=== PATIENT | female | born 1990 | race Caucasian/White ===

== ENCOUNTER → 2023-05-28 10:13 | Outpatient (BNVA) | payer OTHER, SELFPAY | PROVIDERS: Visit Provider Nurse Practitioner Family | DX: Z00.00 Encounter for general adult medical examination without abnormal findings (principal); Z34.91 Encounter for supervision of normal pregnancy, unspecified, first trimester; O21.0 Mild hyperemesis gravidarum | CPT/HCPCS: 80061; 82947 ==

== ENCOUNTER → 2024-05-15 09:18 | Outpatient (BNVA) | payer OTHER, SELFPAY | PROVIDERS: Visit Provider Nurse Practitioner Family | DX: Z02.89 Encounter for other administrative examinations (principal) | CPT/HCPCS: 80061; 82947; 84443 ==